=== PATIENT | female | born 1995 | race African-American/Black ===

== ENCOUNTER → 2019-04-14 | Outpatient (CLI) | payer OTHER | LOC: COL.RAD 10:22 | DX: R10.13 Epigastric pain (principal) ==

== ENCOUNTER → 2020-07-02 | Outpatient (CLI) | payer OTHER | LOC: COL.RAD 06-23 08:15 | DX: R79.89 Other specified abnormal findings of blood chemistry (principal) | CPT/HCPCS: A9585 ==